=== PATIENT | female | born 1955 | race Caucasian/White ===

== ENCOUNTER → 2016-09-08 | Outpatient (REF) | payer SELFPAY ==
[~2016-09-08] MED LIST: ASPI-860 PO; ATOR40TA2 PO; CHLO25TA2 PO; ESTR0.5T PO; LISI5TAB14 PO; MEDR2.5T6 PO; MELO-255 PO; METF-760 PO; METO100T2 PO; OMEP20CA12 PO; OXYB5TAB9 PO; SPIR25TA PO
[2016-09-08 10:37] LABS: ALBUMIN 4.1 g/dL (3.4-5.0); ALKALINE PHOSPHATASE 147 U/L (38-126); ANION GAP 19.7 MEQ/L (3-15); BUN/CREATININE RATIO 28 (10-20); CALCULATED IONIZED CALCIUM 4.1 mg/dL (3.8-4.6); TOTAL PROTEIN 7.1 g/dL (6.4-8.5)
== END ==
LOC: LAB 10:01
PROVIDERS: ATTEND Family Medicine
DX: I10 Essential (primary) hypertension (principal); E78.4 Other hyperlipidemia; E88.81 Metabolic syndrome and other insulin resistance; R73.09 Other abnormal glucose
CPT/HCPCS: 80053; 80061; 83036; 84443

== ENCOUNTER → 2016-09-15 | Outpatient (CLI) | payer SELFPAY ==
--- NOTE | 2016-09-15 12:35 | Diagnostic Imaging Report ---
DIG SATHISH BILAT SCREEN W CAD COMPARISON: 07/29/2015 and 07/25/14 INDICATION: Screening mammography. TECHNIQUE: Digital screening mammography was obtained with a computer-aided detection (CAD) system. FINDINGS: There are scattered fibroglandular densities. Stable well-circumscribed isodense masses in the posterior lateral aspect of both breasts, most compatible with benign intramammary lymph nodes. No dominant mass, suspicious microcalcifications or architectural distortion to suggest malignancy. IMPRESSION: Stable mammogram without evidence of malignancy. Followup screening mammogram in 12 months is recommended. ACR BI-RADS Category 2: Benign findings. Result letter will be mailed to the patient. Note: At least 10% of breast cancer is not imaged by mammography. Dictated by: Dictated on workstation # [id number]
== END ==
LOC: RAD 07:49
PROVIDERS: ATTEND Family Medicine
DX: Z12.31 Encounter for screening mammogram for malignant neoplasm of breast (principal); R31.29 Other microscopic hematuria; R73.09 Other abnormal glucose; E88.81 Metabolic syndrome and other insulin resistance
CPT/HCPCS: 82951; G0202

== ENCOUNTER 2016-09-17 18:33 | Emergency (ER) | payer SELFPAY ==
[~2016-09-17] VITALS: Ht 162.6 cm; Wt 84.4 kg
--- OUTSIDE RECORDS SUMMARY | 2016-09-17 18:39 | XMS REPORT | Continuity of Care Document ---
Author Author [facility] Address Unknown Phone Unavailable Allergies Active Description Code Type Severity Reaction Onset Reported/Identified Relationship to Patient Clinical Status Yes No Known Drug Allergies [id number] Drug Allergy Unknown N/ A 09/08/2015 Yes acetaminophen [id number] Drug Allergy Unknown N/A 10/03/2015 Yes codeine [id number] Drug Allergy Unknown N/A 10/03/2015 Medications Problems Date Dx Coded Attending Type Code Diagnosis Diagnosed By 04/26/2014 Ot V76.12 05/16/2014 Saturnino MEJIA, Ganesh Batista Ot 276.8 05/16/2014 Saturnino MEJIA, Ganesh Batista Ot 790.21 06/04/2014 Saturnino MEJIA, Ganesh Batista Ot 276.8 07/30/2014 Ot V76.12 07/30/2014 Saturnino MEJIA, Ganesh Batista Ot 276.8 07/30/2014 Saturnino MEJIA, Ganesh Batista Ot 790.21 07/30/2014 Saturnino MEJIA, Ganesh Batista Ot 276.8 07/30/2014 Saturnino MEJIA, Ganesh Batista Ot 786.2 07/30/2014 Saturnino MEJIA, Ganesh Batista Ot 276.8 07/30/2014 Saturnino MEJIA, Ganesh Batista Ot 790.21 07/30/2014 Saturnino MEJIA, Ganesh Batista Ot 786.2 09/09/2014 Saturnino MEJIA, Ganesh Batista Ot 786.2 09/09/2014 Saturnino MEJIA, Ganesh Batista Ot 276.8 09/09/2014 Saturnino MEJIA, Ganesh Batista Ot 790.21 10/21/2014 Ot 272.4 10/21/2014 Ot 401.9 10/21/2014 Saturnino MEJIA, Ganesh Batista Ot 272.4 10/21/2014 Saturnino MEJIA, Ganesh Batista Ot 401.9 10/21/2014 Saturnino MEJIA, Ganesh Batista Ot 272.4 10/21/2014 Saturnino MEJIA, Ganesh Batista Ot 401.9 10/21/2014 Saturnino MEJIA, Ganesh Batista Ot 790.21 10/23/2014 Saturnino MEJIA, Ganesh Batista Ot 786.2 10/23/2014 Saturnino MEJIA, Ganesh Batista Ot 276.8 10/23/2014 Saturnino MEJIA, Ganesh Batista Ot 790.21 11/03/2014 Ot 272.4 11/03/2014 Ot 401.9 11/03/2014 Saturnino MEJIA, Ganesh Batista Ot 272.4 11/03/2014 Saturnino MEJIA, Ganesh Batista Ot 401.9 11/03/2014 Saturnino MEJIA, Ganesh Batista Ot 272.4 11/03/2014 Saturnino MEJIA, Ganesh Batista Ot 401.9 11/03/2014 Saturnino MEJIA, Ganesh Batista Ot 790.21 11/18/2014 Saturnino MEJIA, Ganesh Batista Ot 790.21 01/31/2015 Saturnino MEJIA, Ganesh Batista Ot 272.4 01/31/2015 Saturnino MEJIA, Ganesh Batista Ot 401.9 01/31/2015 Saturnino MEJIA, Ganesh Batista Ot 790.21 04/22/2015 RAEGAN CHAN MD Ot E11.9 04/22/2015 JONATHON ANDRADE MD, RAEGAN Culp Ot I10 06/30/2015 JONATHON ANDRADE MD, RAEGAN J Ot I10 06/30/2015 JONATHON ANDRADE MD, RAEGAN Culp Ot N39.41 07/11/2015 JONATHON ANDRADE MD, RAEGAN J Ot I10 07/11/2015 JONATHON ANDRADE MD, RAEGAN J Ot N39.41 08/08/2015 RAEGAN CHAN MD Ot E78.5 08/08/2015 RAEGAN CHAN MD Ot E87.6 08/08/2015 JONATHON ANDRADE MD, RAEGAN J Ot E88.81 08/08/2015 JONATHON ANDRADE MD, RAEGAN J Ot I10 08/08/2015 RAEGAN CHAN MD J Ot R31.9 08/23/2015 RAEGAN CHAN MD Ot K76.0 08/23/2015 RAEGAN CHAN MD J Ot R31.2 08/23/2015 JONATHON ANDRADE MD, RAEGAN Culp Ot Z12.31 08/29/2015 JONATHON ANDRADE MD, RAEGAN Culp Ot E87.6 09/08/2015 NIKO TA MD, Ot E11.9 TYPE 2 DIABETES MELLITUS WITHOUT COMPLIC 09/08/2015 NIKO TA MD, Ot I10 ESSENTIAL (PRIMARY) HYPERTENSION 09/08/2015 NIKO TA MD, Ot K57.30 DVRTCLOS OF LG INT W/O PERFORATION OR AB 09/08/2015 NIKO TA MD, Ot Z12.11 ENCOUNTER FOR SCREENING FOR MALIGNANT NE 09/22/2015 NIKO TA MD, Ot E11.9 TYPE 2 DIABETES MELLITUS WITHOUT COMPLIC 09/22/2015 NIKO TA MD, Ot I10 ESSENTIAL (PRIMARY) HYPERTENSION 09/22/2015 NIKO TA MD, Ot K57.30 DVRTCLOS OF LG INT W/O PERFORATION OR AB 09/22/2015 NIKO TA MD, Ot Z12.11 ENCOUNTER FOR SCREENING FOR MALIGNANT NE 09/22/2015 NIKO TA MD, Ot E11.9 TYPE 2 DIABETES MELLITUS WITHOUT COMPLIC 09/22/2015 NIKO TA MD, Ot I10 ESSENTIAL (PRIMARY) HYPERTENSION 09/22/2015 NIKO TA MD, Ot K57.30 DVRTCLOS OF LG INT W/O PERFORATION OR AB 09/22/2015 NIKO TA MD, Ot Z12.11 ENCOUNTER FOR SCREENING FOR MALIGNANT NE 10/06/2015 Travis Rosario MD, Ot E66.01 MORBID (SEVERE) OBESITY DUE TO EXCESS CA 10/06/2015 Travis Rosario MD, Ot I10 ESSENTIAL (PRIMARY) HYPERTENSION 10/06/2015 Travis Rosario MD, Ot R31.2 OTHER MICROSCOPIC HEMATURIA 10/06/2015 Travis Rosario MD, Ot Z68.28 BODY MASS INDEX (BMI) 28.0-28.9, ADULT 10/06/2015 Travis Rosario MD, Ot Z79.82 [facility] (CURRENT) USE OF ASPIRIN 10/14/2015 Travis Rosario MD, Ot R31.2 OTHER MICROSCOPIC HEMATURIA 10/17/2015 Travis Rosario MD, Ot E66.01 MORBID (SEVERE) OBESITY DUE TO EXCESS CA 10/17/2015 Travis Rosario MD, Ot I10 ESSENTIAL (PRIMARY) HYPERTENSION 10/17/2015 Mauch MD, Travis D Ot R31.2 OTHER MICROSCOPIC HEMATURIA 10/17/2015 Travis Rosario MD Ot Z68.28 BODY MASS INDEX (BMI) 28.0-28.9, ADULT 10/17/2015 Travis Rosario MD Ot Z79.82 [facility] (CURRENT) USE OF ASPIRIN 11/25/2015 WILMIKAELA, SE L PATIENT ACCOUNT ANALYST Ot E88.81 METABOLIC SYNDROME 11/25/2015 WILGERS, SE L PATIENT ACCOUNT ANALYST Ot R42 DIZZINESS AND GIDDINESS 12/16/2015 WILGERS, SE L PATIENT ACCOUNT ANALYST Ot E88.81 METABOLIC SYNDROME 12/16/2015 WILGERS, SE L PATIENT ACCOUNT ANALYST Ot R42 DIZZINESS AND GIDDINESS 02/04/2016 WILGERS, SE L PATIENT ACCOUNT ANALYST Ot E88.81 METABOLIC SYNDROME 02/04/2016 [facility] ACCOUNT ANALYST Ot R42 DIZZINESS AND GIDDINESS 02/04/2016 Ot V76.12 OTH SCREEN MAMMO-MALIGN NEOPLASM OF RICH 02/04/2016 Ganesh Matamoros MD Ot 276.8 HYPOPOTASSEMIA 02/04/2016 Ganesh Matamoros MD Ot 790.21 IMPAIRED FASTING GLUCOSE 02/04/2016 Ganesh Matamoros MD Ot 276.8 HYPOPOTASSEMIA 02/04/2016 Ganesh Matamoros MD Ot 786.2 COUGH 02/04/2016 Ot 611.79 SYMPTOMS IN BREAST NEC 02/04/2016 Ot V76.12 OTH SCREEN MAMMO-MALIGN NEOPLASM OF RICH 02/04/2016 Ganesh Matamoros MD Ot 276.8 HYPOPOTASSEMIA 02/04/2016 Ganesh Matamoros MD Ot 790.21 IMPAIRED FASTING GLUCOSE 02/04/2016 Ganesh Matamoros MD Ot 790.21 IMPAIRED FASTING GLUCOSE 02/04/2016 Ganesh Matamoros MD Ot 272.4 HYPERLIPIDEMIA NEC/NOS 02/04/2016 Ganesh Matamoros MD Ot 401.9 HYPERTENSION NOS 02/04/2016 Ganesh Matamoros MD Ot 790.21 IMPAIRED FASTING GLUCOSE 02/04/2016 JONATHON ANDRADE MD, RAEGAN Culp Ot E11.9 TYPE 2 DIABETES MELLITUS WITHOUT COMPLIC 02/04/2016 JONATHON ANDRADE MD, RAEGAN Culp Ot I10 ESSENTIAL (PRIMARY) HYPERTENSION 02/04/2016 RAEGAN CHAN MD Ot I10 ESSENTIAL (PRIMARY) HYPERTENSION 02/04/2016 RAEGAN CHAN MD Ot K76.0 FATTY (CHANGE OF) LIVER, NOT ELSEWHERE C 02/04/2016 RAEGAN CHAN MD Ot R31.2 OTHER MICROSCOPIC HEMATURIA 02/04/2016 RAEGAN CHAN MD Ot Z12.31 ENCNTR SCREEN MAMMOGRAM FOR MALIGNANT NE 02/04/2016 RAEGAN CHAN MD Ot N39.41 URGE INCONTINENCE 02/04/2016 RAEGAN CHAN MD Ot E78.5 HYPERLIPIDEMIA, UNSPECIFIED 02/04/2016 RAEGAN CHAN MD Ot E87.6 HYPOKALEMIA 02/04/2016 RAEGAN CHAN MD Ot E88.81 METABOLIC SYNDROME 02/04/2016 RAEGAN CHAN MD Ot I10 ESSENTIAL (PRIMARY) HYPERTENSION 02/04/2016 RAEGAN CHAN MD Ot R31.9 HEMATURIA, UNSPECIFIED 02/04/2016 RAEGAN CHAN MD Ot E87.6 HYPOKALEMIA 02/04/2016 Abraham MEJIA, Travis Souza Ot R31.2 OTHER MICROSCOPIC HEMATURIA 02/04/2016 SE HARRELL PATIENT ACCOUNT ANALYST Ot E88.81 METABOLIC SYNDROME 02/04/2016 SE HARRELL PATIENT ACCOUNT ANALYST Ot R42 DIZZINESS AND GIDDINESS 03/22/2016 Ot 272.4 HYPERLIPIDEMIA NEC/NOS 03/22/2016 Ot 401.9 HYPERTENSION NOS 03/22/2016 Ganesh Matamoros MD Ot 272.4 HYPERLIPIDEMIA NEC/NOS 03/22/2016 Ganesh Matamoros MD Ot 401.9 HYPERTENSION NOS 03/22/2016 Ganesh Matamoros MD Ot 272.4 HYPERLIPIDEMIA NEC/NOS 03/22/2016 Ganesh Matamoros MD Ot 401.9 HYPERTENSION NOS 03/22/2016 Ganesh Matamoros MD Ot 790.21 IMPAIRED FASTING GLUCOSE 09/08/2016 Ot V76.12 OTH SCREEN MAMMO-MALIGN NEOPLASM OF RICH 09/08/2016 Ganesh Matamoros MD Ot 276.8 HYPOPOTASSEMIA 09/08/2016 Ganesh Matamoros MD Ot 790.21 IMPAIRED FASTING GLUCOSE 09/08/2016 Ganesh Matamoros MD Ot 276.8 HYPOPOTASSEMIA 09/08/2016 Ganesh Matamoros MD Ot 786.2 COUGH 09/08/2016 Ot 611.79 SYMPTOMS IN BREAST NEC 09/08/2016 Ot V76.12 OTH SCREEN MAMMO-MALIGN NEOPLASM OF RICH 09/08/2016 Ganesh Matamoros MD Ot 276.8 HYPOPOTASSEMIA 09/08/2016 Ganesh Matamoros MD Ot 790.21 IMPAIRED FASTING GLUCOSE 09/08/2016 Ganesh Matamoros MD Ot 790.21 IMPAIRED FASTING GLUCOSE 09/08/2016 Ganesh Matamoros MD Ot 272.4 HYPERLIPIDEMIA NEC/NOS 09/08/2016 Ganesh Matamoros MD Ot 401.9 HYPERTENSION NOS 09/08/2016 Ganesh Matamoros MD Ot 790.21 IMPAIRED FASTING GLUCOSE 09/08/2016 RAEGAN CHAN MD Ot E11.9 TYPE 2 DIABETES MELLITUS WITHOUT COMPLIC 09/08/2016 RAEGAN CHAN MD Ot I10 ESSENTIAL (PRIMARY) HYPERTENSION 09/08/2016 RAEGAN CHAN MD, Ot I10 ESSENTIAL (PRIMARY) HYPERTENSION 09/08/2016 RAEGAN CHAN MD Ot K76.0 FATTY (CHANGE OF) LIVER, NOT ELSEWHERE C 09/08/2016 RAEGAN CHAN MD Ot R31.2 OTHER MICROSCOPIC HEMATURIA 09/08/2016 RAEGAN CHAN MD Ot Z12.31 ENCNTR SCREEN MAMMOGRAM FOR MALIGNANT NE 09/08/2016 RAEGAN CHAN MD Ot N39.41 URGE INCONTINENCE 09/08/2016 RAEGAN CHAN MD Ot E78.5 HYPERLIPIDEMIA, UNSPECIFIED 09/08/2016 RAEGAN CHAN MD Ot E87.6 HYPOKALEMIA 09/08/2016 RAEGAN CHAN MD Ot E88.81 METABOLIC SYNDROME 09/08/2016 RAEGAN CHAN MD Ot I10 ESSENTIAL (PRIMARY) HYPERTENSION 09/08/2016 RAEGAN CHAN MD Ot R31.9 HEMATURIA, UNSPECIFIED 09/08/2016 RAEGAN CHAN MD Ot E87.6 HYPOKALEMIA 09/08/2016 Abraham MEJIA, Travis Souza Ot R31.2 OTHER MICROSCOPIC HEMATURIA 09/08/2016 SE HARRELL APRN Ot E88.81 METABOLIC SYNDROME 09/08/2016 SE HARRELL APRN Ot R42 DIZZINESS AND GIDDINESS Procedures Code Description Performed By Performed On [id number] INSPECTION OF LOWER INTESTINAL TRACT, EN 09/08/2015 Results Test Result Range Comprehensive metabolic panel - 09/08/16 09:45 Sodium measurement 140 70-110 CARBON DIOXIDE 23 22-29 Serum or plasma anion gap 19.7 3-15 BLOOD UREA NITROGEN 14 7-18 CREATININE SERUM 0.50 0.6-1.2 Brucella species antibody panel (IgG, IgM) 28 10-20 Estimated glomerular filtration rate (GFR) 151.8 Estimated glomerular filtration rate (GFR) non- 125.4 OSMOLALITY,CALCULATED 284 280-300 CALCIUM 9.3 8.8-10.8 Calculated ionized calcium measurement 4.1 3.8-4.6 BILIRUBIN,TOTAL 0.9 0.1-1.0 Serum or plasma alkaline phosphatase measurement 147 38-126 ASPARTATE AMINO TRANSFERASE 24 15-37 ALANINE AMINOTRANSFERASE 45 30-65 Serum or plasma total protein measurement 7.1 6.4-8.5 Serum or plasma albumin measurement 4.1 3.4-5.0 Serum or plasma albumin/globulin mass ratio 1.366 1.1-1.8 THYROID STIMULATING HORMONE* - 09/08/16 09:45 THYROID STIMULATING HORMONE 0.50 0.46- 4.68 LIPID PANEL - 09/08/16 09:45 Cholesterol 214 50-200 HDL Cholesterol 44 40-60 Triglycerides 506 10-150 LDL CHOLESTEROL TNP 50-130 VLDL Cholesterol, calc TNP 4.00-40.00 Cholesterol.total/Cholesterol.in HDL 4.9 0.0-5.0 HEMOGLOBIN A1C* - 09/08/16 09:45 HEMOGLOBIN A1C* 5.8 4.0-6.0 General health panel - 09/15/16 08:16 GLUCOSE,FASTING 108 70-110 Serum or plasma glucose measurement 1 hour post challenge (mass/volume) 215 70-140 GLUCOSE SERUM 2HR 164 70-140 Encounters ACCT No. Visit Date/Time Discharge Status Pt. Type Provider Facility Loc./Unit Complaint [id number] 10/06/2015 08:29:00 2015 10:15:00 DIS Outpatient Abraham MEJIA, [facility] ASC CYSTO [id number] 09/08/2015 07:17:00 2015 11:00:00 DIS Outpatient KEYON MEJIA, [facility] ASC COLONOSCOPY [id number] 03/20/2015 13:28:00 2014 23:59:59 CLS Outpatient JONATHON ANDRADE MD, [facility] LAB LAB DROP OFF [facility] [id number] 01/13/2015 08:00:00 2014 23:59:59 CLS Outpatient Saturnino MEJIA, [facility] LAB [id number] 10/18/2014 14:36:00 2014 23:59:59 CLS Outpatient Saturnino MEJIA, [facility] LAB LAB DROP OFF [id number] 07/19/2014 10:26:00 2014 23:59:59 CLS Outpatient Saturnino MEJIA, [facility] LAB LAB DROP OFF [id number] 07/02/2014 13:56:00 2014 23:59:59 CLS Outpatient Saturnino MEJIA, [facility] LAB [id number] 05/10/2014 09:25:00 2013 23:59:59 CLS Outpatient Saturnino MEJIA, [facility] LAB [id number] 04/26/2014 09:06:00 2013 23:59:59 CLS Outpatient Saturnino MEJIA, [facility] LAB [id number] 04/09/2014 08:08:00 2013 23:59:59 CLS Outpatient Saturnino MEJIA, [facility] LAB [id number] 02/25/2014 07:30:00 2013 23:59:59 CLS Outpatient Saturnino MEJIA, [facility] LAB [id number] 10/26/2013 10:38:00 2013 23:59:59 CLS Outpatient Saturnino MEJIA, [facility] LAB [id number] 09/15/2016 11:15:00 Document Registration [id number] 09/08/2016 10:01:00 ACT Outpatient JONATHON ANDRADE MD , [facility] LAB DROP OFF FROM JONATHONRAYMOND [id number] 11/20/2015 14:10:00 ACT Outpatient NEWMIKAELA SE Wayne BRANCH [facility] LAB LAB DROP OFF SE HARRELL [id number] 09/30/2015 09:25:00 ACT Outpatient Abraham MEJIA, Travis Souza [facility] LAB LAB WORK [id number] 08/01/2015 10:03:00 ACT Outpatient JONATHON ANDRADE MD , [facility] LAB LAB DROP OFF [id number] 07/29/2015 08:11:00 ACT Outpatient JONATHON ANDRADE MD , [facility] RAD MAMMO SCREENING; MICROSCOPIC HEMATURIA M81. [id number] 07/17/2015 07:33:00 ACT Outpatient JONATHON ANDRADE MD , [facility] LAB [id number] 06/20/2015 11:55:00 ACT Outpatient JONATHON ANDRADE MD , [facility] LAB DROP OFF DR OLIVAS [id number] 06/16/2015 09:09:00 ACT Outpatient JONATHON ANDRADE MD , [facility] LAB [id number] 07/25/2014 12:24:00 Document Registration [id number] 11/07/2012 09:33:00 Document Registration [id number] 04/21/2012 08:17:00 Document Registration
--- OUTSIDE RECORDS SUMMARY | 2016-09-17 18:43 | XMS REPORT | Continuity of Care Document ---
Author Author [facility] Address Unknown Phone Unavailable Allergies Active Description Code Type Severity Reaction Onset Reported/Identified Relationship to Patient Clinical Status Yes No Known Drug Allergies [id number] Drug Allergy Unknown N/ A 09/08/2015 Yes acetaminophen [id number] Drug Allergy Unknown N/A 10/03/2015 Yes codeine [id number] Drug Allergy Unknown N/A 10/03/2015 Medications Problems [...] Ganesh Batista Ot 401.9 11/03/2014 Saturnino MEJIA, Gaensh Batista Ot 790.21 11/18/2014 Saturnino MEJIA, Ganesh [...] FOR SCREENING FOR MALIGNANT NE 09/22/2015 NIKO AT MD, Ot E11.9 TYPE 2 DIABETES MELLITUS [...] ADULT 10/06/2015 Travis Rosario MD, Ot Z79.82 ASSISTED (CURRENT) USE OF ASPIRIN 10/14/2015 Travis Rosario MD, Ot R31.2 OTHER MICROSCOPIC HEMATURIA 10/17/2015 Travis Rosario MD, Ot E66.01 MORBID (SEVERE) OBESITY DUE TO EXCESS CA 10/17/2015 Travis Rosario MD, Ot I10 ESSENTIAL (PRIMARY) HYPERTENSION 10/17/2015 Mauch MD, Travis D Ot R31.2 OTHER MICROSCOPIC HEMATURIA 10/17/2015 Travis Rosario MD Ot Z68.28 BODY MASS INDEX (BMI) 28.0-28.9, ADULT 10/17/2015 Travis Rosario MD Ot Z79.82 ASSISTED (CURRENT) USE OF ASPIRIN 11/25/2015 WILMIKAELA, SE L TOMB MAKER HELPER Ot E88.81 METABOLIC SYNDROME 11/25/2015 WILGERS, SE L TOMB MAKER HELPER Ot R42 DIZZINESS AND GIDDINESS 12/16/2015 WILGERS, SE L TOMB MAKER HELPER Ot E88.81 METABOLIC SYNDROME 12/16/2015 WILGERS, SE L TOMB MAKER HELPER Ot R42 DIZZINESS AND GIDDINESS 02/04/2016 WILGERS, SE L TOMB MAKER HELPER Ot E88.81 METABOLIC SYNDROME 02/04/2016 [facility] TOMB MAKER HELPER Ot R42 DIZZINESS AND GIDDINESS 02/04/2016 Ot [...] R31.2 OTHER MICROSCOPIC HEMATURIA 02/04/2016 SE HARRELL TOMB MAKER HELPER Ot E88.81 METABOLIC SYNDROME 02/04/2016 SE HARRELL TOMB MAKER HELPER Ot R42 DIZZINESS AND GIDDINESS 03/22/2016 Ot [...] Procedures Code Description Performed By Performed On [id number] INSPECTION OF LOWER INTESTINAL TRACT, EN 09/08/2015 [...] Status Pt. Type Provider Facility Loc./Unit Complaint [id number] 10/06/2015 08:29:00 2015 10:15:00 DIS Outpatient Abraham MEJIA, [facility] ASC CYSTO [id number] 09/08/2015 07:17:00 2015 11:00:00 DIS Outpatient KEYON MEJIA, [facility] ASC COLONOSCOPY [id number] 03/20/2015 13:28:00 2014 23:59:59 CLS Outpatient JONATHON ANDRADE MD, [facility] LAB LAB DROP OFF [facility] [id number] 01/13/2015 08:00:00 2014 23:59:59 CLS Outpatient Saturnino MEJIA, [facility] LAB [id number] 10/18/2014 14:36:00 2014 23:59:59 CLS Outpatient Saturnino MEJIA, [facility] LAB LAB DROP OFF [id number] 07/19/2014 10:26:00 2014 23:59:59 CLS Outpatient Saturnino MEJIA, [facility] LAB LAB DROP OFF [id number] 07/02/2014 13:56:00 2014 23:59:59 CLS Outpatient Saturnino MEJIA, [facility] LAB [id number] 05/10/2014 09:25:00 2013 23:59:59 CLS Outpatient Saturnino MEJIA, [facility] LAB [id number] 04/26/2014 09:06:00 2013 23:59:59 CLS Outpatient Saturnino MEJIA, [facility] LAB [id number] 04/09/2014 08:08:00 2013 23:59:59 CLS Outpatient Saturnino MEJIA, [facility] LAB [id number] 02/25/2014 07:30:00 2013 23:59:59 CLS Outpatient Saturnino MEJIA, [facility] LAB [id number] 10/26/2013 10:38:00 2013 23:59:59 CLS Outpatient Saturnino MEJIA, [facility] LAB [id number] 09/15/2016 11:15:00 Document Registration [id number] 09/08/2016 10:01:00 ACT Outpatient JONATHON ANDRADE MD , [facility] LAB DROP OFF FROM JONATHONRAYMOND [id number] 11/20/2015 14:10:00 ACT Outpatient NEWMIKAELA SE Wayne BRANCH [facility] LAB LAB DROP OFF SE HARRELL [id number] 09/30/2015 09:25:00 ACT Outpatient Abraham MEJIA, Travis Souza [facility] LAB LAB WORK [id number] 08/01/2015 10:03:00 ACT Outpatient JONATHON ANDRADE MD , [facility] LAB LAB DROP OFF [id number] 07/29/2015 08:11:00 ACT Outpatient JONATHON ANDRADE MD , [facility] RAD MAMMO SCREENING; MICROSCOPIC HEMATURIA M81. [id number] 07/17/2015 07:33:00 ACT Outpatient JONATHON ANDRADE MD , [facility] LAB [id number] 06/20/2015 11:55:00 ACT Outpatient JONATHON ANDRADE MD , [facility] LAB DROP OFF DR OLIVAS [id number] 06/16/2015 09:09:00 ACT Outpatient JONATHON ANDRADE MD , [facility] LAB [id number] 07/25/2014 12:24:00 Document Registration [id number] 11/07/2012 09:33:00 Document Registration [id number] 04/21/2012 08:17:00 Document Registration
--- NOTE | 2016-09-17 19:05 | NUR ---
Pt presents to ER ambulatory after getting a puncture wound in left thumb under nail. Wound has been cleaned and covered with band-aid. Pt requests a tetanus shot only. No other injuries. Injury was obtained while gardening.
[2016-09-17] MEDS ORDERED: TETANUS, DIPTHERIA, PERTUSSIS (ADACELL) VACCINE 0.5 ML VIAL IM ONE (19:30)
[2016-09-17] MEDS ORDERED: TETANUS IMMUNE GLOBULIN IM ONE (19:30)
--- NOTE | 2016-09-17 20:00 | NUR ---
Vaccinations administered. Pt tolerated well. Provided VIS.
--- NOTE | 2016-09-17 20:10 | NUR ---
Pt dismissed to home with instructions. Pt stated her understanding. Pt ambulated out. No other concerns or questions presented.
[2016-09-17 21:19] VITALS: BP 144/85
== END 2016-09-17 20:10 | disposition home or self-care (01) ==
LOC: ED 18:38
DX: Z23 Encounter for immunization (principal)
CPT/HCPCS: 90471; 90715; 96372; 99282; J1670